=== PATIENT | male | born 1995 | race Hispanic/Latino ===

== ENCOUNTER 2023-12-09 05:38 | Inpatient (IN) | payer BC ==
--- OUTSIDE RECORDS SUMMARY | 2023-12-09 05:42 | XMS REPORT | Continuity of Care Document ---
Author Name Unknown Address [address] [place] [address] [place] [address] [employer] Address [address] [place] [address]. [address] [place] [address] Care Team Providers Care Transfer Clerk Name Role Phone ROBIN ALEXANDRE Attending Clinician Unavailable Payers Payer Name Policy Type Policy Number Effective Date Expirati on Date Source [facility] 2 [id number] 2021 00:00:00 Encounters Start Date/Time End Date/Time Encounter Type Admission Type Attending Clinicians Care Facility Care Department Encounter ID Source 2021-06-28 11:30:00 2021-06-28 11:30:00 Outpatient ROBIN ALEXANDRE [id number] Lakshmi Santos
[2023-12-09] MEDS ORDERED: ONDANSETRON 4 MG/2 ML VIAL ONE (06:17)
[2023-12-09] MEDS ORDERED: CEFTRIAXONE 1000 MG/VIAL ONE (06:17)
[2023-12-09] MEDS ORDERED: MORPHINE 4 MG/ML SYR ONE (06:18)
[2023-12-09] MEDS ORDERED: KETOROLAC 30 MG/ML INJ ONE (06:18)
[2023-12-09] MEDS ORDERED: MORPHINE 2 MG/ML SYR ONE (06:18)
[2023-12-09] MEDS ORDERED: FAMOTIDINE 20 MG/2 ML VIAL IV ONE (06:19)
[2023-12-09] MEDS ORDERED: NA CHLORIDE 0.9% 1,000 ML ONE (06:19)
[2023-12-09] MEDS ORDERED: METRONIDAZOLE 500mg IVPB 500 MG/100 ML BAG IV ONE (06:19)
[2023-12-09] MEDS ORDERED: NA CHLORIDE 0.9% 50 ML ONE (06:19)
[2023-12-09 06:32] LABS: Absolute Lymphocytes (CBC) 1.1 K/uL (0.7-4.9); Absolute Monocytes 0.6 K/uL (0.1-1.3); Absolute Neutrophil 11.7 K/uL (1.8-8.0); Basophils % 0.3 % (0-1.3); Hematocrit 46.9 % (39.6-49.0); Hemoglobin 15.4 g/dL (13.6-17.9); Lymphocytes % 8.5 % (15.3-44.8); MCH 27.7 pg (27.0-35.0); MCHC 32.9 g/dL (32.0-36.0); MCV 84.4 fL (80-100); Monocytes % 4.6 % (3.3-12.3); Neutrophils % 86.6 % (41.7-73.7); Platelets 211 thou/uL (152-406); RBC Red Blood Cell Count 5.56 M/uL (4.33-5.43); Red Cell Distribution Width 14.6 % (12.1-15.2)
[2023-12-09 06:50] LABS: Albumin 3.9 g/dL (3.4-5.0); Albumin/Globulin Ratio 0.9 (1.1-1.8); Anion Gap 10.6 mEq/L (5.0-15.0); Globulin 4.4 g/dL (2.3-3.5); Potassium 3.6 mEq/L (3.5-5.1); Protein, Total 8.3 g/dL (6.4-8.2)
--- NOTE | 2023-12-09 07:56 | RAD REPORT ---
EXAM DESCRIPTION: CT - Abdomen Pelvis W Contrast - 12/09/2023 7:43 am CLINICAL HISTORY: Abdominal pain COMPARISON: October 2023 TECHNIQUE: Computed axial tomography of the abdomen pelvis was obtained. 100 cc Isovue-300 was admin istered intravenously. Oral contrast was not requested which limits evaluation of bowel and appendix All CT scans are performed using dose optimization technique as appropriate and may include automated exposure control or mA/KV adjustment according to patient size. FINDINGS: The liver, spleen, pancreas, adrenal and kidneys appear unremarkable. Diverticula stem from the colon. Moderate stranding adjacent to sigmoid colon. A couple of extralumin al air bubbles are present. 2.5 centimeter soft tissue phlegmonous collection lies adjacent to sigmoi d. No abscess. Mildly dilated loops jejunum IMPRESSION: Perforated sigmoid diverticulitis with 2.5 centimeter phlegmonous soft tissue adjacent t o the sigmoid. No abscess. Mildly dilated small bowel probably an ileus. Obstruction has a similar appearance and can be monitor ed on a subsequent exam
[2023-12-09 08:09] LABS: Specific Gravity 1.011 (1.005-1.030); Sqamous Epithelial None Seen /HPF (None Seen); Urine Bacteria None Seen /HPF (<20); Urine Bilirubin NEGATIVE (Negative); Urine Blood Negative (Negative); Urine Clarity Clear (Clear); Urine Color Light-Yellow (Yellow); Urine Culture Reflex Order NOT NEEDED; Urine Glucose NEGATIVE (Negative); Urine Ketones 1+ (Negative); Urine Microscopic Reflex YN ORDER UMIC; Urine Mucus Slight /HPF (None Seen); Urine Nitrite NEGATIVE (Negative); Urine Protein NEGATIVE (Negative); Urine RBC None Seen /HPF (None Seen); Urine Urobilinogen Normal (Normal); Urine WBC <5 /HPF (<5); Urine pH 6.5 (5.0-7.0)
[2023-12-09 08:19] LABS: Platelet Estimate ADEQ; White Blood Cell Scan OK (OK)
[2023-12-09 08:20] LABS: Blood Morphology Comment NOT SEEN (NOT SEEN)
--- NOTE | 2023-12-09 08:54 | EDPHYS ---
Physician Documentation [facility] Name: Jac Fairbanks Age: 28 yrs Sex: Male : 1995 Arrival Date: 12/09/2023 Time: 05:38 Bed 5 Private MD: Jacques Feldman E ED Physician Ever Ng HPI: 12/08 05:43 This 28 yrs old Male presents to ER via Unassigned with complaints of sp4 Abdominal Pain, Back Pain. 06:18 28-year-old male presents with acute worsening lower abdominal pain starting yesterday. sp4 . Past medical history reveals recent admission for perforated diverticulitis. Patient was admitted 10/22/2023 discharge 10/31/2023. Patient was then admitted for sigmoid diverticulitis with perforation without abscess. Small bowel distention was noted with ileus. Patient was managed with conservative treatment with IV antibiotics and discharged home with p.o. Levaquin and Flagyl.. Historical: - Allergies: 06:00 PENICILLINS; rg5 - PMHx: 06:00 Diverticulitis; rg5 - PSHx: 06:00 Hand gnosticist; rg5 - Immunization history:: Client reports receiving the 2nd dose of the Covid vaccine. - Infectious Disease History:: Denies. - Social history:: Smoking status: Patient reports the use of cigarette tobacco products, denies chronic smoking, but will smoke occasionally. - Family history:: not pertinent. ROS: 06:18 Constitutional: Negative for fever, chills, and weight loss, left lower abdominal pain. sp4 Positive back pain 06:18 All other systems are negative, Exam: 06:18 Constitutional: This is a well developed, well nourished patient who is awake, alert, sp4 and in no acute distress. Head/Face: Normocephalic, atraumatic. Eyes: Pupils equal round and reactive to light, extra-ocular motions intact. Lids and lashes normal. Conjunctiva and sclera are not injected. Cornea within normal limits. Periorbital areas with no swelling, redness, or edema. ENT: Nares patent. No nasal discharge, no septal abnormalities noted. Tympanic membranes are normal and external auditory canals are clear. Oropharynx with no redness, swelling, or masses, exudates, or evidence of obstruction, uvula midline. Mucous membranes moist. Neck: Trachea midline, no thyromegaly or masses palpated, and no cervical lymphadenopathy. Supple, full range of motion without nuchal rigidity, or vertebral point tenderness. Chest/axilla: Normal chest wall appearance and motion. Nontender with no deformity. No lesions are appreciated. Cardiovascular: Regular rate and rhythm with a normal S1 and S2. No gallops, murmurs, or rubs. Normal PMI, no JVD. No pulse deficits. Respiratory: Lungs have equal breath sounds bilaterally, clear to auscultation and percussion. No rales, rhonchi or wheezes noted. No increased work of breathing, no retractions or nasal flaring. Abdomen/GI: Soft, with normal bowel sounds. No distension or tympany. Bilateral lower abdominal tenderness with guarding and left lower abdominal rebound Back: No spinal tenderness. No costovertebral tenderness. Skin: Warm, dry with normal turgor. Normal color with no rashes, no lesions, and no evidence of cellulitis. MS/ Extremity: Pulses equal, no cyanosis. Neurovascular intact. Full, normal range of motion. Neuro: Awake and alert, GCS 15, oriented to person, place, time, and situation. Cranial nerves II-XII grossly intact. Motor strength 5/5 in all extremities. Sensory grossly intact. Psych: Awake, alert, with orientation to person, place and time. Behavior, mood, and affect are within normal limits Vital Signs: 05:55 BP 148 / 93; Pulse 110; Resp 19; Temp 98.4(O); Pulse Ox 96% on R/A; Weight 83.91 kg; rg5 Height 5 ft. 6 in. ; Pain 10/10; 06:07 BP 148 / 93; Pulse 110; Resp 19; Temp 98.4; Pulse Ox 96% on R/A; Pain 10/10; rg5 06:37 BP 133 / 91; Pulse 104; Resp 20; Temp 98.6; Pulse Ox 95% on R/A; Pain 10/10; mt4 07:14 BP 131 / 86; Pulse 96; Resp 18; Pulse Ox 95% ; ko1 09:37 BP 137 / 80; Pulse 97; Resp 17; Pulse Ox 99% on R/A; rs5 05:55 Body Mass Index 29.86 (83.91 kg, 167.64 cm) rg5 05:55 Pain Scale: Adult rg5 06:07 Pain Scale: Adult rg5 06:37 Pain Scale: Adult mt4 Decker Coma Score: 06:00 Eye Response: spontaneous(4). Motor Response: obeys commands(6). Verbal Response: rg5 oriented(5). Total: 15. 06:18 Eye Response: spontaneous(4). Motor Response: obeys commands(6). Verbal Response: sp4 oriented(5). Total: 15. 06:41 Eye Response: spontaneous(4). Motor Response: obeys commands(6). Verbal Response: mt4 oriented(5). Total: 15. MDM: 06:09 Patient medically screened. sp4 06:18 Differential diagnosis: Cholelithiasis Fatigue Joint Injury Osteoporosis spinal injury. sp4 Data reviewed: vital signs, nurses notes, old medical records, lab test result(s), radiologic studies, CT scan. Transition of care: After a detail discussion of the patient's case, care is transferred to Ever Ng MD. 11:20 Consideration of Admission/Observation Patient was admitted/placed on observation. rt Management of patient was discussed with the following: Assigner: Discussed with general surgery, will admit for IV antibiotics. I considered the following discharge prescriptions or medication management in the emergency department Medications were administered in the Emergency Department. See MAR. Independent interpretation of the following test(s) in the Emergency Department CT Scan: My interpretation is Small bowel dilation seen on interpretation of CT scan images. Care significantly affected by the following chronic conditions: Diverticulitis. Counseling: I had a detailed discussion with the patient and/or guardian regarding the historical points, exam findings, and any diagnostic results supporting the discharge/admit diagnosis, lab results, radiology results, the need for further work-up and treatment in the hospital. Response to treatment: the patient's symptoms have markedly improved after treatment. 12/08 06:08 Order name: CBC with Diff; Complete Time: 08:29 sp4 12/08 06:08 Order name: CMP; Complete Time: 06:59 sp4 12/08 06:08 Order name: Lipase; Complete Time: 06:59 sp4 12/08 06:08 Order name: Urinalysis w/ reflexes; Complete Time: 08:29 sp4 12/08 08:09 Order name: Blood Culture Adult (2) rt 12/08 08:09 Order name: Lactate w/ 2H reflex if indic.; Complete Time: 09:16 rt 12/08 08:09 Order name: Protime (+inr); Complete Time: 09:16 rt 12/08 08:09 Order name: Ptt, Activated; Complete Time: 09:16 rt 12/08 08:20 Order name: CBC Smear Scan; Complete Time: 08:29 EDMS 12/08 06:08 Order name: CT Abd/Pelvis - IV Contrast Only; Complete Time: 07:59 sp4 12/08 06:08 Order name: IV Saline Lock; Complete Time: 06:13 sp4 12/08 06:08 Order name: Labs collected and sent; Complete Time: 06:42 sp4 12/08 08:09 Order name: Accucheck; Complete Time: 08:12 rt 12/08 08:09 Order name: Cardiac monitoring; Complete Time: 08:12 rt 12/08 08:09 Order name: IV Saline Lock - Large Bore; Complete Time: 08:12 rt 12/08 08:09 Order name: O2 Per Protocol; Complete Time: 08:12 rt 12/08 08:09 Order name: O2 Sat Monitoring; Complete Time: 08:12 rt 12/08 08:09 Order name: Vital Signs; Complete Time: 08:12 rt Administered Medications: 06:35 Drug: Rocephin - Rocephin (cefTRIAXone) IVPB 1 grams IVPB once over 30 mins; (mix in 50 mt4 mL NS) Route: IVPB; Infused Over: 30 mins; Site: right antecubital; 06:58 Follow up: Response: No adverse reaction; IV Status: Completed infusion; IV Intake: [id number] 06:36 Drug: NS 0.9% IV 1000 ml IV at 1 bolus Per protocol; 1000 mL bolus Route: IV; Rate: 1 mt4 bolus; Site: right antecubital; 07:40 Follow up: IV Status: Completed infusion rs5 06:36 Drug: Famotidine IVP 20 mg IVP once; dilute with 10 mL 0.9% NaCl; give over 2 minutes mt4 Route: IVP; Site: right antecubital; 06:52 Follow up: Response: No adverse reaction mt4 06:36 Drug: TORadol - Ketorolac IVP 30 mg IVP once Route: IVP; Site: left antecubital; mt4 06:53 Follow up: Response: No adverse reaction mt4 06:36 Drug: Ondansetron IVP 4 mg IVP once; over 2 minutes Route: IVP; Site: right antecubital;mt4 06:52 Follow up: Response: No adverse reaction mt4 06:36 Drug: morphine IVP or IV 6 mg IVP once over 4 mins Route: IVP; Infused Over: 4 mins; mt4 Site: right antecubital; 06:54 Follow up: Response: No adverse reaction mt4 06:58 Drug: metroNIDAZOLE IVPB 500 mg 100 ml IVPB at 200 ml/hr once over 30 mins Volume: 100 mt4 ml; Route: IVPB; Rate: 200 ml/hr; Infused Over: 30 mins; Site: right antecubital; Disposition Summary: 12/09/23 08:52 Hospitalization Ordered Notes: Hospitalization Status: Inpatient Admission rt Provider: Pawel Cardoza rt Location: Telemetry/[facility] (Inpatient) rt Condition: Stable rt Problem: an acute exacerbation rt Symptoms: have improved rt Bed/Room Type: Standard rt Room Assignment: 230(12/09/23 09:59) ja1 Diagnosis - Acute diverticulitis with perforation rt - Sepsis rt - Ileus rt Forms: - Medication Reconciliation Form rt - SBAR form rt - Leadership Thank You Letter rt Signatures: Dispatcher [employer] Elliot White RN RN ja1 Ever Ng MD MD rt Abdi Rich MD MD sp4 Nayeli Bertrand cp4 Jackson Rucker RN RN rg5 Seun Pandey RN RN mt4 Ady Torres RN rs5 Corrections: (The following items were deleted from the chart) 06: 06:07 Immunization history: Client reports receiving the 2nd dose of the Covid vaccine, rg5 cp4 06:25 06:07 Infectious Disease History: Denies. cp4 rg5 06:25 06:07 Social history: Smoking status: Patient reports the use of cigarette tobacco rg5 products, denies chronic smoking, but will smoke occasionally, cp4 06:25 06:18 Family history: not pertinent, sp4 rg5 06:25 06:18 The history from the nurse's notes was reviewed and I agree with what is rg5 documented. sp4 06:07 Allergies: PENICILLINS; cp4 rg5 06:07 PMHx: Diverticulitis; cp4 rg5 06:07 PSHx: Hand gnosticist; cp4 rg5 09:59 08:52 rt ja1
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
[2023-12-09 09:02] LABS: PT Prothrombin Time 13.9 SECONDS (9.4-12.5); PTT, Activated Partial Thromb 32.1 SECONDS (24.3-36.9); Protime INR 1.25
--- NOTE | 2023-12-09 10:06 | P.HP ---
Certification for Inpatient Patient admitted to: Inpatient With expected LOS: >2 Midnights Practitioner: I am a practitioner with admitting privileges, knowledge of patient current condition, hospital course, and medical plan of care. Services: Services provided to patient in accordance with Admission requirements found in Title 42 Section 412.3 of the Code of Federal Regulations Patient History Date of Service: 12/09/23 Reason for admission: Perforated diverticulitis History of Present Illness: Patient is a 28-year-old male with no significant past medical history who pres ented to the ED 12/09/23 with complaints of lower abdominal pain. He reports symptoms started yesterday morning with mild lower abdominal pain which progressed to severe abdominal pain along with dizziness and sweating. Denies nausea or vomiting. Of note patient was recently hospitalized for perforated diverticulitis and was treated with IV antibiotics, discharged on 10/31/23 on oral Levaquin and Flagyl. WBC 13.5, bilirubin 2, ALT 85 AST 107. Lactic acid 1. Heart rate 110. Blood cultures obtained, received fluid bolus and started on empiric antibiotics in the ED. CT abdomen pelvis 12/09/23 revealing "perforated sigmoid diverticulitis with 2.5 cm phlegmonous soft tissue adjacent to the sigmoid. No abscess. Mildly dilated small bowel probably an ileus. Obstruction has a similar appeara nce and can be monitored on a subsequent exam." ED provider wishes to admit for acute diverticulitis with perforation, sepsis, ileus. Allergies Penicillins Allergy (Verified 12/09/23 10:07) Itching/Hives/Rash Home medications list reviewed: Yes Home Medications: NK [No Home Meds] 12/09/23 - Past Medical/Surgical History Has patient received pneumonia vaccine in the past: No Diabetic: No Past Medical History: Patient denies medical history -: hand surgery - Social History Smoking Status: Never smoker Alcohol use: No CD- Drugs: No Caffeine use: Yes Place of Residence: Home Review of Systems 10-point ROS is otherwise unremarkable General: Sweats Gastrointestinal: Abdominal Pain Integumentary: Unremarkable Neurological: Other (diziness) Physical Examination - Physical Exam General: Alert, In no apparent distress, Oriented x3 HEENT: Atraumatic, Normocephalic, PERRLA, Mucous membr. moist/pink Neck: Supple, 2+ carotid pulse no bruit Respiratory: Clear to auscultation bilaterally, Normal air movement Cardiovascular: No edema, Normal pulses, Regular rate/rhythm Gastrointestinal: Hypoactive (LLQ), Tenderness (lower abdomen L>R) Musculoskeletal: No clubbing, No swelling Integumentary: No rashes, No breakdown Neurological: Normal speech, Normal strength at 5/5 x4 extr - Studies Laboratory Data (last 24 hrs) 12/09/23 12/09/23 12/09/23 08:45 06:00 06:00 WBC 13.50 H Hgb 15.4 Hct 46.9 Plt Count 211 PT 13.9 H INR 1.25 APTT 32.1 Sodium 134 L Potassium 3.6 BUN 9 Creatinine 1.12 Glucose 134 H Total Bilirubin 2.0 H AST 107 H ALT 85 H Alkaline Phosphatase 63 Lipase 29 Imagings Data: CT abdomen pelvis 12/09/23: "perforated sigmoid diverticulitis with 2.5 cm phlegmonous soft tissue adjacent to the sigmoid. No abscess. Mildly dilated small bowel probably an ileus. Obstruction has a similar appearance and can be monitored on a subsequent exam." Assessment and Plan - Plan Problem List Sepsis secondary to acute diverticulitis with perforation Ileus Transaminitis Sepsis secondary to acute diverticulitis with perforation Ileus Transaminitis - CT abdomen pelvis 12/08: "perforated sigmoid diverticulitis with 2.5 cm phlegmonous soft tissue adjacent to the sigmoid. No abscess. Mildly dilated small bowel probably an ileus. Obstruction has a similar appearance and can be monitored on a subsequent exam." - N.p.o. - General Surgery Dr. Diggs consulted -Continue IV antibiotics ciprofloxacin and metronidazole. Noted allergy to penicillin -Continue IVF hydration. -Serial abdominal exams - PRN IV analgesics -Continuous telemetry monitoring -PRN Zofran - Blood cultures 12/08: Pending, follow-up -Trend LFTs Discharge Plan: Home Plan to discharge in: Greater than 2 days - Advance Directives Does patient have a Living Will: No Does patient have a Durable POA for Healthcare: No - Code Status/Comfort Care Code Status: Full Code Time Spent Managing Pts Care (In Minutes): 55
[2023-12-09] MEDS ORDERED: MORPHINE 4 MG/ML SYR IV PRN (11:04)
[2023-12-09] MEDS: NA CHLORIDE 0.9% 1,000 ML IV SCH (11:21)
[2023-12-09] MEDS: MORPHINE 4 MG/ML SYR IV PRN (11:52)
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
[2023-12-09] MEDS: HYDROMORPHONE HCL 1 MG/ML INJ IV PRN (16:00)
[2023-12-09] MEDS: METRONIDAZOLE 500mg IVPB 500 MG/100 ML BAG IV SCH (16:01)
[2023-12-09] MEDS: CIPROFLOXACIN 400mg IV 400 MG/200 ML BAG IV SCH (20:16)
[2023-12-10 04:50] LABS: Absolute Lymphocytes (CBC) 1.7 K/uL (0.7-4.9); Absolute Monocytes 0.8 K/uL (0.1-1.3); Absolute Neutrophil 8.2 K/uL (1.8-8.0); Basophils % 0.2 % (0-1.3); Eosinophils % 0.3 % (0-4.4); Hematocrit 39.7 % (39.6-49.0); Hemoglobin 13.3 g/dL (13.6-17.9); MCH 28.4 pg (27.0-35.0); MCHC 33.4 g/dL (32.0-36.0); MPV 8.6 fL (7.6-11.3); Neutrophils % 76.5 % (41.7-73.7); Nucleated Red Blood Cells % 0.1 % (0-0); Platelets 180 thou/uL (152-406); RBC Red Blood Cell Count 4.67 M/uL (4.33-5.43)
[2023-12-10 05:09] LABS: Albumin 3.1 g/dL (3.4-5.0); Albumin/Globulin Ratio 0.8 (1.1-1.8); Bilirubin Total 1.4 mg/dL (0.2-1.0); Globulin 3.9 g/dL (2.3-3.5); Magnesium 1.9 mg/dL (1.6-2.4); Phosphorus 2.6 mg/dL (2.5-4.9)
[2023-12-10] MEDS: ENOXAPARIN 40 MG/0.4 ML SQ SCH (08:35)
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
--- NOTE | 2023-12-10 13:10 | P.PN ---
Subjective Date of Service: 12/10/23 Chief Complaint: Perforated diverticulitis Subjective: Improving (Patient feels somewhat better, but not much, passing gas.) Physical Examination - Vital Signs Temperature: 98.2 F Blood Pressure: 133/84 Pulse: 101 Respirations: 16 Pulse Ox (%): 91 - Physical Exam General: Alert, In no apparent distress, Cooperative HEENT: Mucous membr. moist/pink Cardiovascular: Regular rate/rhythm Gastrointestinal: Other (soft, ,mild diffuse TTP, +mild voluntary guarding) Assessment And Plan - Current Problems (Diagnosis) (1) Sigmoid diverticulitis Current Visit: No Status: Acute Plan: - Continue IV antibiotics - Serial Exams - Continue Medical Management - Patient has no appetite but has ongoing passage of gas. no BM
[2023-12-11 05:09] LABS: Absolute Eosinophils 0.1 K/uL (0-0.5); Absolute Lymphocytes (CBC) 1.4 K/uL (0.7-4.9); Absolute Monocytes 0.7 K/uL (0.1-1.3); Absolute Neutrophil 5.3 K/uL (1.8-8.0); Basophils % 0.2 % (0-1.3); Eosinophils % 0.9 % (0-4.4); Hemoglobin 12.8 g/dL (13.6-17.9); Lymphocytes % 18.5 % (15.3-44.8); MCH 28.5 pg (27.0-35.0); MCHC 33.8 g/dL (32.0-36.0); MCV 84.3 fL (80-100); MPV 8.8 fL (7.6-11.3); Monocytes % 9.5 % (3.3-12.3); Neutrophils % 70.9 % (41.7-73.7); Platelets 173 thou/uL (152-406); RBC Red Blood Cell Count 4.51 M/uL (4.33-5.43); Red Cell Distribution Width 13.5 % (12.1-15.2)
[2023-12-11 05:29] LABS: Albumin 2.8 g/dL (3.4-5.0); Albumin/Globulin Ratio 0.7 (1.1-1.8); Bilirubin Total 0.9 mg/dL (0.2-1.0); Protein, Total 6.8 g/dL (6.4-8.2)
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
[2023-12-12 07:47] LABS: Absolute Eosinophils 0.1 K/uL (0-0.5); Absolute Lymphocytes (CBC) 1.3 K/uL (0.7-4.9); Absolute Monocytes 0.5 K/uL (0.1-1.3); Absolute Neutrophil 3.8 K/uL (1.8-8.0); Basophils % 0.4 % (0-1.3); Eosinophils % 1.7 % (0-4.4); Hematocrit 40.2 % (39.6-49.0); Hemoglobin 13.2 g/dL (13.6-17.9); Lymphocytes % 22.3 % (15.3-44.8); MCH 27.9 pg (27.0-35.0); MCHC 32.8 g/dL (32.0-36.0); MCV 84.8 fL (80-100); MPV 8.8 fL (7.6-11.3); Monocytes % 9.5 % (3.3-12.3); Neutrophils % 66.1 % (41.7-73.7); Platelets 203 thou/uL (152-406); RBC Red Blood Cell Count 4.73 M/uL (4.33-5.43); Red Cell Distribution Width 13.7 % (12.1-15.2)
[2023-12-12 08:04] LABS: Anion Gap 10.7 mEq/L (5.0-15.0); Phosphorus 2.8 mg/dL (2.5-4.9); Potassium 3.7 mEq/L (3.5-5.1)
[2023-12-12] MEDS: ONDANSETRON 4 MG/2 ML VIAL IV PRN (09:30)
[2023-12-12] MEDS: MEDIHONEY 44 ML TOPICAL TUBE TOP SCH (10:32)
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
[2023-12-13 05:18] LABS: Absolute Eosinophils 0.1 K/uL (0-0.5); Absolute Lymphocytes (CBC) 1.3 K/uL (0.7-4.9); Absolute Monocytes 0.6 K/uL (0.1-1.3); Absolute Neutrophil 3.3 K/uL (1.8-8.0); Basophils % 0.6 % (0-1.3); Eosinophils % 1.8 % (0-4.4); Hematocrit 40.1 % (39.6-49.0); Hemoglobin 13.4 g/dL (13.6-17.9); Lymphocytes % 24.7 % (15.3-44.8); MCH 27.9 pg (27.0-35.0); MCHC 33.6 g/dL (32.0-36.0); MCV 83.2 fL (80-100); Monocytes % 10.5 % (3.3-12.3); Neutrophils % 62.4 % (41.7-73.7); Nucleated Red Blood Cells % 0.1 % (0-0); Platelets 241 thou/uL (152-406); RBC Red Blood Cell Count 4.82 M/uL (4.33-5.43); Red Cell Distribution Width 13.5 % (12.1-15.2)
[2023-12-13 05:33] LABS: Magnesium 1.8 mg/dL (1.6-2.4); Phosphorus 2.9 mg/dL (2.5-4.9)
[2023-12-13] MEDS: MAGNESIUM SULFATE 1 gm IVPB 1 GM/100 ML BAG IV ONE (08:50)
[2023-12-13] MEDS ORDERED: SODIUM CHLORIDE 0.9% 10ML INJ IV PRN (09:04)
[2023-12-13] MEDS: Oxycodone HCl/Acetaminophen 5/325 MG TAB PO PRN (10:51)
[2023-12-13] MEDS: PANTOPRAZOLE 40 MG INJ IVP SCH (10:51)
[2023-12-13] MEDS: SUCRALFATE 1GM/10ML UCUP PO SCH (12:06)
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
[2023-12-14 04:35] LABS: Absolute Eosinophils 0.1 K/uL (0-0.5); Absolute Lymphocytes (CBC) 1.8 K/uL (0.7-4.9); Absolute Monocytes 0.5 K/uL (0.1-1.3); Absolute Neutrophil 3.9 K/uL (1.8-8.0); Basophils % 0.5 % (0-1.3); Eosinophils % 1.2 % (0-4.4); Hematocrit 42.1 % (39.6-49.0); Hemoglobin 14.1 g/dL (13.6-17.9); MCH 28.1 pg (27.0-35.0); MCHC 33.6 g/dL (32.0-36.0); MCV 83.6 fL (80-100); Monocytes % 8.3 % (3.3-12.3); Platelets 251 thou/uL (152-406); RBC Red Blood Cell Count 5.03 M/uL (4.33-5.43); Red Cell Distribution Width 13.6 % (12.1-15.2)
[2023-12-14 04:56] LABS: Anion Gap 10.5 mEq/L (5.0-15.0); Magnesium 1.9 mg/dL (1.6-2.4); Phosphorus 2.8 mg/dL (2.5-4.9); Potassium 3.5 mEq/L (3.5-5.1)
[2023-12-14] MEDS: KCL 20 MEQ/100 mL IVPB 100 ML IV ONE (06:12)
[2023-12-14] MEDS: KCL 20 MEQ/100 mL IVPB 20 MEQ/100 ML BAG IV ONE (06:20)
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
[2023-12-14] MEDS: PROCHLORPERAZINE 5 MG TAB PO ONE (23:40)
[2023-12-15] MEDS: PROMETHAZINE INJ 25 MG/ML AMP IV ONE (00:58)
[2023-12-15 04:52] LABS: Anion Gap 9.8 mEq/L (5.0-15.0); Potassium 3.8 mEq/L (3.5-5.1)
--- NOTE | 2023-12-15 10:32 | RAD REPORT ---
EXAM DESCRIPTION: CTAbdomen Pelvis W Contrast - 12/15/2023 10:17 am CLINICAL HISTORY: perforated diverticulitis COMPARISON: Abdomen Pelvis W Contrast dated 12/09/2023; Abdomen Pelvis W Contrast dated 10/31/2023 ; Abdomen Pelvis W Contrast dated 10/28/2023; Abdomen Pelvis W Contrast dated 10/26/2023 TECHNIQUE: CT of the abdomen and pelvis was performed with IV contrast. All CT scans are performed using dose optimization technique as appropriate and may include automated exposure control or mA/KV adjustment according to patient size. FINDINGS: Lower chest: Small bilateral pleural effusions . Liver: Mild hepatic steatosis. Biliary: No biliary ductal dilatation. Stomach: No significant focal abnormality. Duodenum: No significant focal abnormality. Pancreas: No significant abnormality. Spleen: No significant abnormality. Adrenal: No suspicious lesions. Kidney/ureter: No hydronephrosis. No renal calculi. Retroperitoneum: No retroperitoneal adenopathy. Vascular: No aneurysm. Bowel: Sequela of recent perforated sigmoid diverticulitis. A small abscess is in the small bowel mes entery closely apposed to a segment of small bowel in the left central abdomen. The fluid collection measures approximately 4.1 x 2.3 cm. Given the proximity of the small bowel, this would not be amenab le to percutaneous drainage. The perforation extends into the sigmoid mesocolon with some extralumina l gas extending up to but not definitely extending to the suspected abscess. No gas is present within the abscess to suggest continued communication with the perforation.. Peritoneum: No ascites or free air. Bladder: Grossly unremarkable. Reproductive: No adnexal masses. Bones: No acute fracture. Other: n/a IMPRESSION: Interval development of an abscess in close proximity to the small bowel in the left golden tral abdomen. This is NOT drainable percutaneously due to the overlapping small bowel blocking any go od window for access. The perforation with localized air is again noted in the sigmoid mesocolon which is similar in size. Suspect some dilute contrast within the contained perforation suggesting some continued communication with the colon. The presumed abscess does not have gas and there is no definite communication from t he perforation to the abscess cavity.
[2023-12-15] MEDS: POTASSIUM 25 MEQ EFFERV TAB PO ONE (12:41)
[2023-12-15] MEDS ORDERED: ERTAPENEM SODIUM 1 GM VIAL IVPB SCH (13:00)
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
[2023-12-15] MEDS: Meropenem 1,000 MG in NA CHLORIDE 0.9% 100 ML IV SCH (14:26)
[2023-12-15] MEDS ORDERED: AMINO ACIDS 4.25 %/DEXTROSE 5% 2,000 ML, Lipids 20% 250 ML with MULTIVITAMINS INJ 10 ML IV SCH (17:00)
[2023-12-15] MEDS: AA 4.25 %/D5W/ELECTROLYTES 2,000 ML, Lipids 20% 250 ML with MULTIVITAMINS INJ 10 ML IV SCH (17:20)
--- NOTE | 2023-12-15 18:19 | RAD REPORT ---
[facility] 5[facility]39 [facility] CLINICAL HISTORY: verify picc placement COMPARISON: Chest Single View dated 11/04/2023; Chest Single View dated 10/27/2023 TECHNIQUE: Portable AP view of the chest. FINDINGS: Right arm PICC has been placed, with catheter tip projecting at the mid to distal SVC. The lungs are clear. No pneumothorax or effusion. The cardiomediastinal contours are unremarkable. IMPRESSION: Satisfactory right arm PICC placement as above. No acute cardiopulmonary process.
[2023-12-15] MEDS: Mupirocin NASAL 2 APPL/1 GM TUBE NAS SCH (21:01)
[2023-12-16 06:08] LABS: Absolute Eosinophils 0.1 K/uL (0-0.5); Absolute Lymphocytes (CBC) 1.5 K/uL (0.7-4.9); Absolute Monocytes 0.5 K/uL (0.1-1.3); Basophils % 0.6 % (0-1.3); Eosinophils % 2.3 % (0-4.4); Hematocrit 39.7 % (39.6-49.0); Hemoglobin 13.7 g/dL (13.6-17.9); Lymphocytes % 24.8 % (15.3-44.8); MCHC 34.5 g/dL (32.0-36.0); MCV 84.1 fL (80-100); MPV 8.2 fL (7.6-11.3); Monocytes % 7.5 % (3.3-12.3); Neutrophils % 64.8 % (41.7-73.7); Nucleated Red Blood Cells % 0.2 % (0-0); Platelets 253 thou/uL (152-406); RBC Red Blood Cell Count 4.72 M/uL (4.33-5.43)
[2023-12-16 06:37] LABS: Anion Gap 16.4 mEq/L (5.0-15.0)
[2023-12-16 06:38] LABS: Potassium 4.4 mEq/L (3.5-5.1)
--- NOTE | 2023-12-16 13:11 | P.PN ---
Subjective Date of Service: 12/16/23 Chief Complaint: Perforated diverticulitis Patient continues to have symptomatic improvement. Physical Examination - Vital Signs Temperature: 98.3 F Blood Pressure: 144/78 Pulse: 79 Respirations: 16 Pulse Ox (%): 96 - Physical Exam General: Alert, In no apparent distress, Cooperative Respiratory: Clear to auscultation bilaterally, Normal air movement Gastrointestinal: Other (Soft mild appropriate tenderness to palpation the left lower quadrant no rebound or guarding no focal peritonitis. Slowly improving from previous exams.) Assessment And Plan - Current Problems (Diagnosis) (1) Sigmoid diverticulitis Current Visit: No Status: Acute Plan: - Continue IV antibiotics - Serial Exams - Continue Medical Management -Patient had repeat CT scan which showed abscess collection approximately 4 cm near previous perforation near the small bowel not amenable to percutaneous drainage. -Continue antibiotic treatment with modification to different IV antibiotic regimen. PICC line in place -Will likely start p.o. feeds after repeat CT scan shows improvement of abscess. -If abscess improved with p.o. antibiotics will likely DC on long-term antibiotics. -I have reiterated that the patient needs a colonoscopy and needs to have surgical planning discussion after his had multiple episodes of complicated diverticulitis with diverticular abscess
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
[2023-12-16] MEDS ORDERED: AA 4.25 %/D5W/ELECTROLYTES 2,000 ML IV SCH (17:00)
[2023-12-16] MEDS: AMINO ACIDS 5 %/DEXTROSE 20 % 2,000 ML IV SCH (17:13)
[2023-12-16 18:24] LABS: Prealbumin 22.5 mg/dL (20-40)
[2023-12-17 04:22] VITALS: BMI 29.7
[2023-12-17 06:13] LABS: Absolute Eosinophils 0.1 K/uL (0-0.5); Absolute Lymphocytes (CBC) 1.6 K/uL (0.7-4.9); Absolute Monocytes 0.6 K/uL (0.1-1.3); Absolute Neutrophil 3.6 K/uL (1.8-8.0); Basophils % 0.7 % (0-1.3); Eosinophils % 2.1 % (0-4.4); Hematocrit 43.6 % (39.6-49.0); Hemoglobin 14.3 g/dL (13.6-17.9); Lymphocytes % 26.9 % (15.3-44.8); MCH 27.6 pg (27.0-35.0); MCHC 32.9 g/dL (32.0-36.0); MCV 83.7 fL (80-100); MPV 8.1 fL (7.6-11.3); Neutrophils % 60.3 % (41.7-73.7); Platelets 269 thou/uL (152-406); RBC Red Blood Cell Count 5.21 M/uL (4.33-5.43); Red Cell Distribution Width 13.7 % (12.1-15.2)
[2023-12-17 06:36] LABS: Anion Gap 8.5 mEq/L (5.0-15.0); Magnesium 1.8 mg/dL (1.6-2.4); Phosphorus 3.3 mg/dL (2.5-4.9); Potassium 3.5 mEq/L (3.5-5.1)
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
[2023-12-18 08:18] LABS: Absolute Eosinophils 0.1 K/uL (0-0.5); Absolute Lymphocytes (CBC) 2.3 K/uL (0.7-4.9); Absolute Monocytes 0.5 K/uL (0.1-1.3); Absolute Neutrophil 4.2 K/uL (1.8-8.0); Basophils % 0.6 % (0-1.3); Eosinophils % 1.4 % (0-4.4); Hematocrit 48.4 % (39.6-49.0); Lymphocytes % 32.3 % (15.3-44.8); MCH 27.8 pg (27.0-35.0); MCHC 33.1 g/dL (32.0-36.0); Neutrophils % 58.7 % (41.7-73.7); Nucleated Red Blood Cells % 0.1 % (0-0); Platelets 279 thou/uL (152-406); RBC Red Blood Cell Count 5.76 M/uL (4.33-5.43); Red Cell Distribution Width 13.7 % (12.1-15.2)
[2023-12-18 08:37] LABS: Anion Gap 7.8 mEq/L (5.0-15.0); Magnesium 1.5 mg/dL (1.6-2.4); Phosphorus 2.8 mg/dL (2.5-4.9); Potassium 3.8 mEq/L (3.5-5.1)
--- NOTE | 2023-12-18 09:45 | RAD REPORT ---
EXAM DESCRIPTION: CTAbdomen Pelvis W Contrast - 12/18/2023 9:05 am CLINICAL HISTORY: Abdominal pain. perforation follow up COMPARISON: Abdomen Pelvis W Contrast dated 12/15/2023; Abdomen Pelvis W Contrast dated 12/09/2023; Abdomen Pelvis W Contrast dated 10/31/2023; Abdomen Pelvis W Contrast dated 10/28/2023 TECHNIQUE: CT imaging of the abdomen and pelvis was performed with 100 ml non-ionic IV contrast. All CT scans are performed using dose optimization technique as appropriate and may include automated exposure control or mA/KV adjustment according to patient size. FINDINGS: The lung bases are clear. The liver demonstrates mild fatty liver. The spleen, pancreas, adrenal glands and kidneys are within normal limits. No bowel obstruction, free air, free fluid or abscess. No significant change has occurred in the smal l bowel abscess and wall thickening adjacent to area of sigmoid diverticulitis. There is mild improve ment in the diverticulitis with reduction in the degree of sigmoid wall thickening. Nonvisualized briana endix. No evidence of significant lymphadenopathy. No suspicious bony findings. IMPRESSION: No significant changes occurred since 12/15/2023 study in the left lower quadrant small bowel interloop abscess and wall thickening. The abscess remains small and teardrop shaped maximally measuring 3.5 cm. Sigmoid diverticulitis has mildly improved since the prior study with reduction in the wall thickenin g.
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
[2023-12-18] MEDS: Magnesium Sulfate 2gm IVPB 2 G/50 ML BAG IV ONE (11:21)
[2023-12-18] MEDS: AMINO ACIDS 5 %/DEXTROSE 20 % 2,000 ML, Lipids 20% 250 ML with MULTIVITAMINS INJ 10 ML IV SCH (17:52)
[2023-12-19 07:58] LABS: Absolute Basophils 0.1 K/uL (0-0.5); Absolute Eosinophils 0.1 K/uL (0-0.5); Absolute Lymphocytes (CBC) 2.5 K/uL (0.7-4.9); Absolute Monocytes 0.5 K/uL (0.1-1.3); Absolute Neutrophil 4.2 K/uL (1.8-8.0); Basophils % 0.7 % (0-1.3); Eosinophils % 1.8 % (0-4.4); Hematocrit 47.9 % (39.6-49.0); Hemoglobin 15.7 g/dL (13.6-17.9); Lymphocytes % 33.2 % (15.3-44.8); MCH 27.9 pg (27.0-35.0); MCHC 32.9 g/dL (32.0-36.0); MCV 84.8 fL (80-100); MPV 8.5 fL (7.6-11.3); Monocytes % 7.3 % (3.3-12.3); Nucleated Red Blood Cells % 0.1 % (0-0); Platelets 284 thou/uL (152-406); RBC Red Blood Cell Count 5.64 M/uL (4.33-5.43)
[2023-12-19 08:21] LABS: Anion Gap 6.5 mEq/L (5.0-15.0); Magnesium 1.9 mg/dL (1.6-2.4); Phosphorus 2.7 mg/dL (2.5-4.9); Potassium 3.5 mEq/L (3.5-5.1)
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
[2023-12-20 04:44] LABS: Absolute Eosinophils 0.1 K/uL (0-0.5); Absolute Monocytes 0.4 K/uL (0.1-1.3); Absolute Neutrophil 3.8 K/uL (1.8-8.0); Basophils % 0.6 % (0-1.3); Eosinophils % 0.9 % (0-4.4); Hematocrit 41.7 % (39.6-49.0); Hemoglobin 14.1 g/dL (13.6-17.9); Lymphocytes % 32.1 % (15.3-44.8); MCH 28.1 pg (27.0-35.0); MCHC 33.7 g/dL (32.0-36.0); MCV 83.3 fL (80-100); MPV 8.4 fL (7.6-11.3); Monocytes % 6.6 % (3.3-12.3); Neutrophils % 59.8 % (41.7-73.7); Nucleated Red Blood Cells % 0.2 % (0-0); Platelets 238 thou/uL (152-406); RBC Red Blood Cell Count 5.01 M/uL (4.33-5.43); Red Cell Distribution Width 13.7 % (12.1-15.2)
[2023-12-20 05:07] LABS: Albumin 3.1 g/dL (3.4-5.0); Albumin/Globulin Ratio 0.9 (1.1-1.8); Anion Gap 6.6 mEq/L (5.0-15.0); Bilirubin Total 0.5 mg/dL (0.2-1.0); Globulin 3.4 g/dL (2.3-3.5); Magnesium 1.6 mg/dL (1.6-2.4); Phosphorus 2.2 mg/dL (2.5-4.9); Potassium 3.6 mEq/L (3.5-5.1); Protein, Total 6.5 g/dL (6.4-8.2)
[2023-12-20] MEDS: HYDROMORPHONE HCL 1 MG/ML INJ IV PRN (08:42)
--- NOTE | 2023-12-20 10:36 | RAD REPORT ---
EXAM DESCRIPTION: CTAbdomen Pelvis W Contrast - 12/20/2023 10:06 am CLINICAL HISTORY: Abdominal pain. Re eval diverticulitis/abscess COMPARISON: Abdomen Pelvis W Contrast dated 12/18/2023; Abdomen Pelvis W Contrast dated 12/15/2023; Abdomen Pelvis W Contrast dated 12/09/2023; Abdomen Pelvis W Contrast dated 10/31/2023 TECHNIQUE: CT imaging of the abdomen and pelvis was performed with 100 ml non-ionic IV contrast. All CT scans are performed using dose optimization technique as appropriate and may include automated exposure control or mA/KV adjustment according to patient size. FINDINGS: The lung bases are clear. The liver, spleen, pancreas, adrenal glands and kidneys are within normal limits. Since the 12/18/2023 prior study, there has been improvement in the interloop abscess which is no bhavana roshan well seen. Inflammatory changes in the left lower quadrant of also mildly improved. No evidence o f free intraperitoneal air. No significant free fluid collections. The appendix is normal. No eviden ce of significant lymphadenopathy. No suspicious bony findings. IMPRESSION: Since the 12/18/2023 prior study, there has been mild to moderate improvement in the int erloop abscess and inflammatory changes surrounding the sigmoid colon. No new finding seen.
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
[2023-12-21 05:18] LABS: Hematocrit 45.6 % (39.6-49.0); Hemoglobin 14.8 g/dL (13.6-17.9); MCH 27.4 pg (27.0-35.0); MCHC 32.4 g/dL (32.0-36.0); MCV 84.5 fL (80-100); MPV 9.2 fL (7.6-11.3); Platelets 252 thou/uL (152-406); Red Cell Distribution Width 14.1 % (12.1-15.2)
[2023-12-21 05:37] LABS: Albumin 3.3 g/dL (3.4-5.0); Albumin/Globulin Ratio 0.9 (1.1-1.8); Anion Gap 5.8 mEq/L (5.0-15.0); Bilirubin Total 0.5 mg/dL (0.2-1.0); Globulin 3.8 g/dL (2.3-3.5); Potassium 3.8 mEq/L (3.5-5.1); Protein, Total 7.1 g/dL (6.4-8.2)
[2023-12-21] MEDS: POTASSIUM 25 MEQ EFFERV TAB PO ONE (08:53)
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
[2023-12-21 09:44] VITALS: O2SAT 97
[2023-12-21 10:21] VITALS: BP 112/61; TEMP 98.3
== END 2023-12-21 10:54 | disposition home or self-care (01) | DRG 872 ==
LOC: ER 05:38 → ERHOLD 09:36 → 2ND 10:21
PROVIDERS: ADMIT Hospitalist; ATTEND Hospitalist
PROC: 02HV33Z Insertion of Infusion Device into Superior Vena Cava, Percutaneous Approach (ICD-10-PCS; principal; 2023-12-15)
PROC: 3E0436Z Introduction of Nutritional Substance into Central Vein, Percutaneous Approach (ICD-10-PCS; 2023-12-15)
DX: A41.9 Sepsis, unspecified organism (principal); K57.20 Diverticulitis of large intestine with perforation and abscess without bleeding; K56.7 Ileus, unspecified; F17.210 Nicotine dependence, cigarettes, uncomplicated; R74.01 Elevation of levels of liver transaminase levels; Z88.0 Allergy status to penicillin
CPT/HCPCS: 36415; 36569; 71045; 74177; 80048; 80053; 81001; 82040; 82550; 82947; 83605; 83690; 83735; 84100; 84134; 85025; 85027; 85610; 85730; 87040; 99285; J0696; J0744; J1170; J1650; J2185; J2270; J2405; J2470; J2550; J3475; J3480; J7030; Q0164; Q9967